=== PATIENT | male | born 1935 | race Caucasian/White ===

== ENCOUNTER 2020-11-11 23:44 | Inpatient (IN) | payer MEDICARE, OTHER ==
--- NOTE | 2020-11-12 00:09 | ED ---
Weakness HPI - General Stated complaint: Weakness Time Seen by Provider: 11/11/20 23:46 Source: patient Limitations: no limitations - History of Present Illness Initial comments: This patient is an 85-year-old man here to be evaluated for weakness. The patient reports that both of his legs were weak and he was not able to walk well. This it come on tonight. On further history reveals that the patient may have taken all of his daily medications tonight, including a number of antihypertensives. It is reported that sometimes when the patient forgets his morning medications, he takes them as well as the night medications. The patient is denying focal weakness. He denies pain, dyspnea, fever or chills. No change in urination or bowel movements. No nausea or vomiting. MD Complaint: generalized weakness Onset/Timin -: hour(s) Location: LLE, RLE Consistency: other (Improving) Improves with: none Worsens with: none Associated Symptoms: denies other symptoms - Related Data Home Medications Medication Instructions Recorded Confirmed Atorvastatin Calcium [Lipitor] 10 mg PO HS 11/12/20 11/12/20 Clopidogrel Bisulfate [Plavix] 75 mg PO DAILY 11/12/20 11/12/20 Losartan/Hydrochlorothiazide 1 tab PO DAILY 11/12/20 11/12/20 [Losartan-Hctz 100-25 mg Tab] amLODIPine [Norvasc] 10 mg PO DAILY 11/12/20 11/12/20 atenoloL [Atenolol] 25 mg PO DAILY 11/12/20 11/12/20 glyBURIDE [Diabeta] 5 mg PO AC-BID 11/12/20 11/12/20 metFORMIN HCL 500 mg PO BID 11/12/20 11/12/20 Allergies Allergy/AdvReac Type Severity Reaction Status Date / Time No Known Allergies Allergy Verified 11/12/20 09:29 Review of Systems ROS Statement: Those systems with pertinent positive or pertinent negative responses have been documented in the HPI. ROS Other: All systems not noted in ROS Statement are negative. Constitutional: Reports: weakness. Denies: fever, chills Eyes: Denies: vision change Respiratory: Denies: cough, dyspnea Cardiovascular: Denies: chest pain, palpitations, edema, syncope Gastrointestinal: Denies: abdominal pain, vomiting, diarrhea, melena, hematochezia Genitourinary: Denies: dysuria Musculoskeletal: Denies: back pain Skin: Denies: rash Neurological: Denies: headache, weakness, numbness General Exam General appearance: alert, in no apparent distress Head exam: Present: atraumatic, normocephalic Eye exam: Present: normal appearance. Absent: scleral icterus, conjunctival injection Neck exam: Present: normal inspection, full ROM. Absent: tenderness Respiratory exam: Present: normal lung sounds bilaterally. Absent: respiratory distress, wheezes, rales, rhonchi, stridor Cardiovascular Exam: Present: regular rate, normal rhythm, normal heart sounds. Absent: systolic murmur, diastolic murmur, rubs, gallop GI/Abdominal exam: Present: soft. Absent: distended, tenderness, guarding, rebound, rigid, mass Extremities exam: Present: normal inspection, normal capillary refill. Absent: pedal edema, calf tenderness Back exam: Present: normal inspection. Absent: CVA tenderness (R), CVA tenderness (L) Neurological exam: Present: alert, CN II-XII intact. Absent: motor sensory deficit Skin exam: Present: warm, dry, intact, normal color. Absent: rash Course Vital Signs 11/11/20 11/12/20 11/12/20 23:50 00:11 02:20 Temperature 99.3 F Pulse Rate 88 65 71 Respiratory 16 22 20 Rate Blood Pressure 138/79 112/80 127/77 O2 Sat by Pulse 95 95 96 Oximetry 11/12/20 04:30 Temperature 98.6 F Pulse Rate 62 Respiratory 18 Rate Blood Pressure 112/71 O2 Sat by Pulse 96 Oximetry EKG Findings - EKG Results: EKG: interpreted by ER[facility] EKG shows: atrial fibrillation (With PVCs. Rate is proximal 73 bpm) - Blocks, [place], Hypertrophy, ST Abn: AV and intraventricular conduction: left bundle branch block (fi xed/intermittent, complete/incomplete) QRS axis and voltage: left axis deviation (-30 to -90) Medical Decision Making - Medical Decision Making Patient is an 85-year-old man presenting with complaint of weakness. On arrival patient's is complaining of generalized weakness. It did appear that this may be due to the atrial fibrillation with rapid ventricular rate. Patient's did arrive and subsequently described some focal symptoms, namely facial droop. Patient however has been outside the window of treatment for ischemic stroke with TPA, being nearly 5 hours symptomatic on arrival in the emergency [facility]. Patient is admitted for further evaluation and treatment including neurology consultation and MRI. - Lab Data Result diagrams: 11/12/20 00:41 11/12/20 00:41 Lab Results 11/12/20 11/12/20 11/12/20 Range/Units 00:41 00:41 00:41 WBC 9.0 (3.8-10.6) k/uL RBC 4.61 (4.30-5.90) m/uL Hgb 14.6 (13.0-17.5) gm/dL Hct 43.1 (39.0-53.0) % MCV 93.5 (80.0-100.0) fL MCH 31.8 (25.0-35.0) pg MCHC 34.0 (31.0-37.0) g/dL RDW 12.6 (11.5-15.5) % Plt Count 238 (150-450) k/uL MPV 7.5 Neutrophils % 74 % Lymphocytes % 14 % Monocytes % 8 % Eosinophils % 2 % Basophils % 1 % Neutrophils # 6.7 (1.3-7.7) k/uL Lymphocytes # 1.2 (1.0-4.8) k/uL Monocytes # 0.7 (0-1.0) k/uL Eosinophils # 0.2 (0-0.7) k/uL Basophils # 0.1 (0-0.2) k/uL PT 10.6 (9.0-12.0) sec INR 1.0 (<1.2) APTT 22.9 (22.0-30.0) sec Sodium (137-145) mmol/L Potassium (3.5-5.1) mmol/L Chloride (98-107) mmol/L Carbon Dioxide (22-30) mmol/L Anion Gap mmol/L BUN (9-20) mg/dL Creatinine (0.66-1.25) mg/dL Est GFR (CKD-EPI)AfAm (>60 ml/min/1.73 sqM) Est GFR (CKD-EPI)NonAf (>60 ml/min/1.73 sqM) Glucose (74-99) mg/dL POC Glucose (mg/dL) (75-99) mg/dL POC Glu [employer] ID Calcium (8.4-10.2) mg/dL Total Bilirubin (0.2-1.3) mg/dL AST (17-59) U/L ALT (4-49) U/L Alkaline Phosphatase (38-126) U/L Troponin I (0.000-0.034) ng/mL Total Protein (6.3-8.2) g/dL Albumin (3.5-5.0) g/dL Triglycerides (0.0-149.0) mg/dL Cholesterol (0-200) mg/dL LDL Cholesterol, Calc (0.0-131.0) mg/dL VLDL Cholesterol, Calc (5.00-40.00) mg/dL HDL Cholesterol (40.0-60.0) mg/dL Cholesterol/HDL Ratio Urine Color Yellow Urine Appearance Clear (Clear) Urine pH 6.0 (5.0-8.0) Ur Specific [place] 1.016 (1.001-1.035) Urine Protein Negative (Negative) Urine Glucose (UA) 3+ H (Negative) Urine Ketones Negative (Negative) Urine Blood Negative (Negative) Urine Nitrite Negative (Negative) Urine Bilirubin Negative (Negative) Urine Urobilinogen <2.0 (<2.0) mg/dL Ur Leukocyte Esterase Negative (Negative) 11/12/20 11/12/20 11/12/20 Range/Units 00:41 00:41 00:41 WBC (3.8-10.6) k/uL RBC (4.30-5.90) m/uL Hgb (13.0-17.5) gm/dL Hct (39.0-53.0) % MCV (80.0-100.0) fL MCH (25.0-35.0) pg MCHC (31.0-37.0) g/dL RDW (11.5-15.5) % Plt Count (150-450) k/uL MPV Neutrophils % % Lymphocytes % % Monocytes % % Eosinophils % % Basophils % % Neutrophils # (1.3-7.7) k/uL Lymphocytes # (1.0-4.8) k/uL Monocytes # (0-1.0) k/uL Eosinophils # (0-0.7) k/uL Basophils # (0-0.2) k/uL PT (9.0-12.0) sec INR (<1.2) APTT (22.0-30.0) sec Sodium 141 (137-145) mmol/L Potassium 4.1 (3.5-5.1) mmol/L Chloride 105 (98-107) mmol/L Carbon Dioxide 26 (22-30) mmol/L Anion Gap 10 mmol/L BUN 27 H (9-20) mg/dL Creatinine 1.00 (0.66-1.25) mg/dL Est GFR (CKD-EPI)AfAm 79 (>60 ml/min/1.73 sqM) Est GFR (CKD-EPI)NonAf 68 (>60 ml/min/1.73 sqM) Glucose 165 H (74-99) mg/dL POC Glucose (mg/dL) (75-99) mg/dL POC Glu [employer] ID Calcium 8.9 (8.4-10.2) mg/dL Total Bilirubin 0.6 (0.2-1.3) mg/dL AST 23 (17-59) U/L ALT 16 (4-49) U/L Alkaline Phosphatase 93 (38-126) U/L Troponin I <0.012 (0.000-0.034) ng/mL Total Protein 6.8 (6.3-8.2) g/dL Albumin 4.2 (3.5-5.0) g/dL Triglycerides 77.0 (0.0-149.0) mg/dL Cholesterol 105 (0-200) mg/dL LDL Cholesterol, Calc 47.6 (0.0-131.0) mg/dL VLDL Cholesterol, Calc 15.40 (5.00-40.00) mg/dL HDL Cholesterol 42.0 (40.0-60.0) mg/dL Cholesterol/HDL Ratio 2.50 Urine Color Urine Appearance (Clear) Urine pH (5.0-8.0) Ur Specific [place] (1.001-1.035) Urine Protein (Negative) Urine Glucose (UA) (Negative) Urine Ketones (Negative) Urine Blood (Negative) Urine Nitrite (Negative) Urine Bilirubin (Negative) Urine Urobilinogen (<2.0) mg/dL Ur Leukocyte Esterase (Negative) 11/12/20 11/12/20 Range/Units 01:05 07:09 WBC (3.8-10.6) k/uL RBC (4.30-5.90) m/uL Hgb (13.0-17.5) gm/dL Hct (39.0-53.0) % MCV (80.0-100.0) fL MCH (25.0-35.0) pg MCHC (31.0-37.0) g/dL RDW (11.5-15.5) % Plt Count (150-450) k/uL MPV Neutrophils % % Lymphocytes % % Monocytes % % Eosinophils % % Basophils % % Neutrophils # (1.3-7.7) k/uL Lymphocytes # (1.0-4.8) k/uL Monocytes # (0-1.0) k/uL Eosinophils # (0-0.7) k/uL Basophils # (0-0.2) k/uL PT (9.0-12.0) sec INR (<1.2) APTT (22.0-30.0) sec Sodium (137-145) mmol/L Potassium (3.5-5.1) mmol/L Chloride (98-107) mmol/L Carbon Dioxide (22-30) mmol/L Anion Gap mmol/L BUN (9-20) mg/dL Creatinine (0.66-1.25) mg/dL Est GFR (CKD-EPI)AfAm (>60 ml/min/1.73 sqM) Est GFR (CKD-EPI)NonAf (>60 ml/min/1.73 sqM) Glucose (74-99) mg/dL POC Glucose (mg/dL) 127 H 103 H (75-99) mg/dL POC Glu [employer] Work[employer] Dionna Villarreal Tiffany Calcium (8.4-10.2) mg/dL Total Bilirubin (0.2-1.3) mg/dL AST (17-59) U/L ALT (4-49) U/L Alkaline Phosphatase (38-126) U/L Troponin I (0.000-0.034) ng/mL Total Protein (6.3-8.2) g/dL Albumin (3.5-5.0) g/dL Triglycerides (0.0-149.0) mg/dL Cholesterol (0-200) mg/dL LDL Cholesterol, Calc (0.0-131.0) mg/dL VLDL Cholesterol, Calc (5.00-40.00) mg/dL HDL Cholesterol (40.0-60.0) mg/dL Cholesterol/HDL Ratio Urine Color Urine Appearance (Clear) Urine pH (5.0-8.0) Ur Specific [place] (1.001-1.035) Urine Protein (Negative) Urine Glucose (UA) (Negative) Urine Ketones (Negative) Urine Blood (Negative) Urine Nitrite (Negative) Urine Bilirubin (Negative) Urine Urobilinogen (<2.0) mg/dL Ur Leukocyte Esterase (Negative) Disposition Clinical Impression: Atrial fibrillation Narrative: Possible ischemic stroke versus TIA Disposition: ADMITTED IP TO THIS HOSP Condition: Serious Is patient prescribed a controlled substance at d/c from ED?: No
--- NOTE | 2020-11-12 00:37 | XR ---
EXAMINATION TYPE: XR chest 2V DATE OF EXAM: 11/12/2020 COMPARISON: NONE HISTORY: Mental status TECHNIQUE: 2 views FINDINGS: There is slight coarsening of interstitial markings. There is no pulmonary consolidation. T here is no heart failure. There is arthritic changes in the shoulder joints. There is no pleural effu radha. IMPRESSION: Mild pulmonary fibrotic changes. No heart failure or pulmonary consolidation.
[2020-11-12 01:03] LABS: Basophils # (A) 0.1 k/uL (0-0.2); Basophils % (A) 1 %; Eosinophils # (A) 0.2 k/uL (0-0.7); Eosinophils % (A) 2 %; HCT 43.1 % (39.0-53.0); HGB 14.6 gm/dL (13.0-17.5); Lymphocytes # (A) 1.2 k/uL (1.0-4.8); Lymphocytes % (A) 14 %; MCH 31.8 pg (25.0-35.0); MCV 93.5 fL (80.0-100.0); Mean Platelet Volume 7.5; Monocytes # (A) 0.7 k/uL (0-1.0); Monocytes % (A) 8 %; Neutrophils # (A) 6.7 k/uL (1.3-7.7); Neutrophils % (A) 74 %; Platelet Count 238 k/uL (150-450); RBC 4.61 m/uL (4.30-5.90); RDW 12.6 % (11.5-15.5)
[2020-11-12 01:07] LABS: Glucose,Whole Blood 127 mg/dL (75-99)
[2020-11-12 01:08] LABS: Partial Thromboplastin Time 22.9 sec (22.0-30.0); Prothrombin Time 10.6 sec (9.0-12.0)
[2020-11-12 01:22] LABS: Albumin 4.2 g/dL (3.5-5.0); Calcium 8.9 mg/dL (8.4-10.2); Potassium 4.1 mmol/L (3.5-5.1); Total Bilirubin 0.6 mg/dL (0.2-1.3); Total Protein 6.8 g/dL (6.3-8.2)
[2020-11-12 02:20] LABS: Appearance,Urine Clear (Clear); Bilirubin,Urine Negative (Negative); Blood,Urine Negative (Negative); Color,Urine Yellow; Glucose,Urine (UA) 3+ (Negative); Ketones,Urine Negative (Negative); Leukocyte Esterase,Urine Negative (Negative); Nitrite,Urine Negative (Negative); Protein,Urine Negative (Negative); Specific Gravity,Urine 1.016 (1.001-1.035); Urobilinogen,Urine <2.0 mg/dL (<2.0)
[2020-11-12] MEDS ORDERED: NALOXONE 0.4 MG/ML 1 ML VIAL IV PRN (04:03)
[2020-11-12] MEDS: SODIUM CHLORIDE 0.9% 1,000 ML IV SCH ×2 (04:53→18:39)
--- NOTE | 2020-11-12 05:14 | CT ---
EXAMINATION TYPE: CT brain wo con DATE OF EXAM: 11/12/2020 COMPARISON: None HISTORY: AMS. No prior on PACS CT DLP: 1247.7 mGycm Automated exposure control for dose reduction was used. There is cerebral cortical atrophy. There is no mass effect nor midline shift. There is no sign of in tracranial hemorrhage. There is 3 cm area of hypodensity left posterior temporal lobe consistent with an old infarct. There is hypodensity in the periventricular white matter. The calvarium is intact. S kull base is intact. 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 Cerebral atrophy. Chronic small vessel ischemia. No acute i ntracranial abnormality.
[2020-11-12 07:12] LABS: Glucose,Whole Blood 103 mg/dL (75-99)
[2020-11-12 11:40] LABS: Glucose,Whole Blood 128 mg/dL (75-99)
[2020-11-12] MEDS: INSULIN ASPART (NovoLOG) 100 UNIT/ML VIAL SQ SCH ×3 (11:47→20:32)
--- NOTE | 2020-11-12 11:48 | P.CNNES ---
History of Present Illness Consult date: 11/12/20 Requesting physician: Adonay Hess Reason for Consult: Altered mental status History of Present Illness: Patient is a 85-year-old male came to the hospital yesterday at 11:44 PM by ambulance for weakness. Patient states that he was watching TV at 7 pm and suddenly became dizzy and was slurring his words. The dizziness lasted for 5 minutes. He was noticing difficulty getting up, and could not walk. EMS was called and by the time EMS arrived, he was able to speak. He was still weak, but patient declined to come to the hospital, and EMS personnel left. Subsequ ently he noticed that he was still not able to get up, therefore was concerned if he was having a stroke. Family called the EMS again at 10:51 PM therefore came to the ER. Patient still complains of weakness all over. He states he has history of 5 strokes in the past. He states that his left arm is always weaker in the right for the last 1 year. He denies any numbness tingling or focal weakness. Patient states that usually he does not use any cane or walker. He is very careful for walking. Per EMS flow sheet, patient was brought for possible overdose on his medications. Patient had experienced dizziness and weakness earlier in the evening and refused to be treated and transported by EMS at that time. Later on in the evening the patient realized he did not take his morning medications and decided to double the dose on his medications to make up for missing the morning doses and per his family was acting altered. When EMS arrived, patient was sitting in his couch appearing in no distress. He was alert and oriented 4, GCS of 15 and was interacting appropriately with other first responders. Patient was negative for any deficits on [place] stroke scale. Patient initially declined to go to the hospital but patient's reinforced and he agreed to come to the hospital. Patient's vitals at the scene was 147/83 pulse rate 82, respiration 18 and blood sugar 262. Patient's vitals on arrival blood pressure 138/79, pulse rate 88, temperature 99.3. CT head showed old left posterior temporal lobe infarct. Cerebral atrophy. Chronic small vessel ischemia. Chest x-ray showed mild pulmonary fibrotic changes. No heart failure or pulmonary consolidation. Patient's home medications include glyburide 5 mg twice a day, amlodipine, losartan/HCTZ, atenolol, Plavix 75 mg, Lipitor 10 mg, metformin 500 mg twice a day. Patient has history of hypertension, diabetes. He smoked half pack per day for 30 years, quit 40 years ago. Patient states he has 6 strokes 5 years ago. Patient had undergone skin cancer surgery involving the vertex of the head. About a month ago he underwent "burning" of the lesion. The cancer came back therefore he underwent surgical removal of the lesion last Monday 3 days ago. Review of Systems As above in detail. Denies any neck or back pain. Patient has arthritis. Denies any chest pain, abdominal pain, nausea vomiting diarrhea. He has soiled his underwear with urine. He has some gait problem. Denies anxiety depression. Patient has hearing difficulty. No sore throat, dysphagia. Past Medical History Past Medical History: Diabetes Mellitus, Hyperlipidemia, Hypertension Additional Past Medical History / Comment(s): Stroke History of Any Multi-Drug Resistant Organisms: None Reported Additional Past Surgical History / Comment(s): knee surgery, eye surgery Past Psychological History: No Psychological Hx Reported Smoking Status: Former smoker Past Alcohol Use History: Occasional Past Drug Use History: None Reported Medications and Allergies Home Medications Medication Instructions Recorded Confirmed Type Atorvastatin Calcium [Lipitor] 10 mg PO HS 11/12/20 11/12/20 History Clopidogrel Bisulfate [Plavix] 75 mg PO DAILY 11/12/20 11/12/20 History Losartan/Hydrochlorothiazide 1 tab PO DAILY 11/12/20 11/12/20 History [Losartan-Hctz 100-25 mg Tab] amLODIPine [Norvasc] 10 mg PO DAILY 11/12/20 11/12/20 History atenoloL [Atenolol] 25 mg PO DAILY 11/12/20 11/12/20 History glyBURIDE [Diabeta] 5 mg PO AC-BID 11/12/20 11/12/20 History metFORMIN HCL 500 mg PO BID 11/12/20 11/12/20 History Allergies Allergy/AdvReac Type Severity Reaction Status Date / Time No Known Allergies Allergy Verified 11/12/20 09:29 Physical Examination - Vital Signs Vital Signs: Vital Signs Temp Pulse Pulse Resp BP BP Pulse Ox 11/12/20 07:52 98.2 F 79 16 97/66 96 11/12/20 07:00 98.2 F 79 16 97/66 96 11/12/20 05:44 98.1 F 76 20 140/79 98 11/12/20 04:30 98.6 F 62 18 112/71 96 11/12/20 02:20 71 20 127/77 96 11/12/20 00:11 65 22 112/80 95 11/11/20 23:50 99.3 F 88 16 138/79 95 Intake and Output 11/11/20 11/12/20 11/12/20 22:59 06:59 14:59 Other: # Voids 0 Weight 81.647 kg Patient is an elderly male, in no acute distress. Patient is alert awake oriented to time place and person. He knows it is October 2020 and that he is in [facility]. Speech is mildly dysarthric and language functions are normal. No aphasia. Attention, concentration and fund of knowledge is adequate. On cranial examination, right pupil is tear shaped (surgical) and NR, left pupil is round and reacting to light, visual church reveal left homonymous hemianopia, extraocular muscles are intact with no nystagmus. Face has mild left facial asymmetry, central type, tongue protrudes to the midline. Palatal elevation and sensation normal, hearing is moderately decreased and shoulder shrug normal, facial sensation normal. On muscle strength testing, there is significant left pronator drift and the s trength is normal in arms and legs distally and proximally except left deltoid which is 3-4 (per patient is chronic). Deep tendon reflexes are symmetric, 1+ and plantars are upgoing bilaterally. Sensory to touch is equal with no neglect. Cerebellar function showed moderate ataxia for [id number] testing on the left side. Tone and bulk of muscles normal. Patient had difficulty sitting up from the bed. He tends to lean and fall to the left side with posture imbalance. Did not have him walk. On general examination, there is no carotid bruit or murmur, S1-S2 audible. Abdomen is soft nontender. Chest is clear. Peripheral pulses are present. No edema. Results - Laboratory Findings CBC and BMP: 11/12/20 00:41 11/12/20 00:41 Abnormal Lab Findings: Abnormal Labs 11/12/20 11/12/20 11/12/20 00:41 00:41 01:05 BUN 27 H Glucose 165 H POC Glucose (mg/dL) 127 H Urine Glucose (UA) 3+ H 11/12/20 07:09 BUN Glucose POC Glucose (mg/dL) 103 H Urine Glucose (UA) Assessment and Plan Assessment: * Probable acute stroke manifesting with mild left hemiparesis, left homonymous hemianopia. Patient not a candidate for TPA, as he came outside the window for TPA (>4.5 hours). NIH stroke scale is 7. * Diabetes * Hypertension * Hyperlipidemia * X tobacco use * History of multiple strokes in the past Plan: * MRI of the brain, evaluate for acute stroke * Carotid Doppler, rule out stenosis * 2-D echo * Fasting lipid panel, hemoglobin A1c * B12, folate, MMA, TSH * Continue Plavix, statins. * Telemetry monitoring. Transfer to [facility]. * Further management based upon above test results. * Discussed with primary physician. Addendum 6:00 PM: Patient's telemetry monitoring showing atrial fibrillation. EKG also confirmed atrial fibrillation. MRI of the brain confirmed acute inferior right occipital lobe infarct with extension into the right thalamus. Chronic appearing periventricular white matter ischemic change. 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 Patient's and son arrived. Spoke to them in detail. Informed about the results of MRI. As patient has moderate size ischemic stroke, therefore high risk of hemorrhagic conversion with anticoagulation at this time. I discussed with patient's and son in detail about risk and benefits. Family agreed to hold off on anticoagulation for 5 days. I would suggest repeating computed tomography scan of the head on Monday morning. In the computed tomography scan shows no hemorrhagic conversion, would recommend starting anticoagulants from 11/16/2020. Continue Plavix, continue Lovenox for DVT prophylaxis. Discussed with primary physician, agree with the management. Time with Patient: Greater than 30
[2020-11-12] MEDS: ENOXAPARIN 40 MG/0.4 ML SYRINGE SQ SCH (11:54)
[2020-11-12] MEDS: metFORMIN 500 MG TAB PO SCH ×2 (11:54→20:31)
[2020-11-12] MEDS: CLOPIDOGREL 75 MG TAB PO SCH (11:54)
[2020-11-12] MEDS: glipiZIDE 10 MG TAB PO SCH ×2 (11:54→20:31)
[2020-11-12] MEDS: atenoloL 25 MG TAB PO SCH (11:54)
[2020-11-12] MEDS: amLODIPine 10 MG TAB PO SCH (11:54)
[2020-11-12] MEDS: LOSARTAN-HCTZ 50-12.5 MG 1 EACH TAB PO SCH (12:50)
--- NOTE | 2020-11-12 16:40 | MR ---
EXAMINATION TYPE: MR brain wo con DATE OF EXAM: 11/12/2020 COMPARISON: CT brain 11/12/2020 HISTORY: CVA CONTRAST: Performed utilizing 0 mL intravenous Gadavist gadolinium contrast. TECHNIQUE: Multiplanar, multiecho imaging on a 3.0 Sandrita magnet is performed through the brain. Stud y is performed within 24 hours of arrival to the hospital. The craniovertebral junction is normal. The pituitary is normal. Diffusion-weighted imaging is performed. There is hyperintensity within the inferior right occipital lobe with extension into the right thalamus compatible with acute infarct. There is an old infarct within the left watershed region. Periventricular white matter hyperintensity is present, likely on the basis of chronic white matter ischemic changes. Ventricles and sulci are prominent for the patient age. IMPRESSIONS: 1. Acute inferior right occipital lobe infarct with extension into the right thalamus. 2. Chronic appearing periventricular white matter ischemic changes. 3. Old left watershed infarct
[2020-11-12 17:04] LABS: Glucose,Whole Blood 151 mg/dL (75-99)
--- NOTE | 2020-11-12 17:15 | P.HPIM ---
History of Present Illness H&P Date: 11/12/20 Chief Complaint: Dizziness, slurred speech History of presenting complaint: This is a pleasant 85-year-old patient of Dr. David Mcnally. Chronic stable medical conditions include diabetes, hyperlipidemia, hypertension with a possible prior stroke. Patient is not the best of historians. Yesterday evening around 7:30 PM he was watching television when patient suddenly noticed that he became dizzy and also his speech became slurred. He's had previous strokes. His left arm is weaker from before. Patient's finding it a bit difficult to walk. Patient also missed his morning medications. But he is done so before. Patient is not short of days and he knew change in vision. He has trouble from his right eye because of cataract. He denies any trouble in swallowing. No headache. Review of systems: GEN.: Tired EYES: Decreased vision in the right eye HEENT: None NECK: None RESPIRATORY: None CARDIOVASCULAR: None GASTROINTESTINAL: None GENITOURINARY: None MUSCULOSKELETAL: Joint pains LYMPHATICS: None HEMATOLOGICAL: None PSYCHIATRY: A bit forgetful NEUROLOGICAL: As above Past medical history to include: Diabetes, hypertension, hyperlipidemia, stroke Social history: Retired. . Did smoke in the past. Alcohol occasionally Physical examination: VITAL SIGNS: 99.3, 88, 16, 138/79, 95% room air upon presentation GENERAL: BMI 25.1, laying in bed, awake, tired. EYES: Pupils equal. Conjunctiva normal. HEENT: External appearance of nose and ears normal, oral cavity grossly normal. NECK: JVD not raised; masses not palpable. HEART: First and second heart sounds are normal; no edema. LUNGS: Respiratory rate normal; decreased breath sound. ABDOMEN: Soft, nontender, liver spleen not palpable, no masses palpable. PSYCH: Patient bit slow to answer questions but able to do so.l. NEUROLOGICAL: [Speech is a bit slow. Slight facial asymmetry Power in the left arm 4/5. 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 Gait imbalance Reflexes mainly symmetrical sensation grossly preserved LYMPHATICS: No lymph nodes palpable in the axilla and neck INVESTIGATIONS, reviewed in the clinical context: WBC 9 hemoglobin 14.6 platelets 238 potassium 4.1 BUN 27 creatinine 1 Troponin I less than 0.012 UA: Glucose 3+ EKG tracing personally reviewed by me-atrial fibrillation with a rate of 73. 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 Cerebral atrophy. Chest x-ray film personally reviewed by me-borderline cardiomegaly. Course interstitial markings Assessment and plan: -This is a patient presented with sudden dizziness, difficulty walking, and weakness of the left arm which may be chronic. Unclear if patient has any visu al field defects at this point. Acute stroke. Neuro checks. Consult neurology. MRI of the brain. Plavix. Add aspirin. Lipitor. Carotid Doppler. 2-D echocardiogram. 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 Consult PTOT -Essential hypertension Continue with amlodipine, Tenormin, Hyzaar -Hyperlipidemia Increase Lipitor to 40 mg daily at bedtime -Diabetes mellitus type 2, on oral hypoglycemic Resume glyburide. For Accu-Cheks. Patient be moved to the telemetry floor. Discussed with neurology. Home medications resumed. Follow Accu-Cheks. Fall precautions. Consultation to PTOT and speech therapy. 2-D echo, carotid Doppler pending. MRI of the brain pending. Given the complexity and severity of patient's condition expect the patient to be in the hospital at least for 2 overnights Past Medical History Past Medical History: Diabetes Mellitus, Hyperlipidemia, Hypertension Additional Past Medical History / Comment(s): Stroke History of Any Multi-Drug Resistant Organisms: None Reported Additional Past Surgical History / Comment(s): knee surgery, eye surgery Past Psychological History: No Psychological Hx Reported Smoking Status: Former smoker Past Alcohol Use History: Occasional Past Drug Use History: None Reported Medications and Allergies Home Medications Medication Instructions Recorded Confirmed Type Atorvastatin Calcium [Lipitor] 10 mg PO HS 11/12/20 11/12/20 History Clopidogrel Bisulfate [Plavix] 75 mg PO DAILY 11/12/20 11/12/20 History Losartan/Hydrochlorothiazide 1 tab PO DAILY 11/12/20 11/12/20 History [Losartan-Hctz 100-25 mg Tab] amLODIPine [Norvasc] 10 mg PO DAILY 11/12/20 11/12/20 History atenoloL [Atenolol] 25 mg PO DAILY 11/12/20 11/12/20 History glyBURIDE [Diabeta] 5 mg PO AC-BID 11/12/20 11/12/20 History metFORMIN HCL 500 mg PO BID 11/12/20 11/12/20 History Allergies Allergy/AdvReac Type Severity Reaction Status Date / Time No Known Allergies Allergy Verified 11/12/20 09:29 Physical Exam Vitals: Vital Signs Temp Pulse Pulse Resp BP BP Pulse Ox 11/12/20 07:52 98.2 F 79 16 97/66 96 11/12/20 07:00 98.2 F 79 16 97/66 96 11/12/20 05:44 98.1 F 76 20 140/79 98 11/12/20 04:30 98.6 F 62 18 112/71 96 11/12/20 02:20 71 20 127/77 96 11/12/20 00:11 65 22 112/80 95 11/11/20 23:50 99.3 F 88 16 138/79 95 Intake and Output 11/11/20 11/12/20 11/12/20 22:59 06:59 14:59 Other: # Voids 0 Weight 81.647 kg Results CBC & Chem 7: 11/12/20 00:41 11/12/20 00:41 Labs: Abnormal Lab Results - Last 24 Hours (Table) 11/12/20 11/12/20 11/12/20 Range/Units 00:41 00:41 01:05 BUN 27 H (9-20) mg/dL Glucose 165 H (74-99) mg/dL POC Glucose (mg/dL) 127 H (75-99) mg/dL Urine Glucose (UA) 3+ H (Negative) 11/12/20 Range/Units 07:09 BUN (9-20) mg/dL Glucose (74-99) mg/dL POC Glucose (mg/dL) 103 H (75-99) mg/dL Urine Glucose (UA) (Negative) Thrombosis Risk Factor Assmnt - Choose All That Apply Other Risk Factors: Yes Each Risk Factor Represents 3 Points: Age 75 years or older Thrombosis Risk Factor Assessment Total Risk Factor Score: 3 Thrombosis Risk Factor Assessment Level: Moderate Risk
[2020-11-12] MEDS: ASPIRIN 81 MG PO SCH (18:32)
[2020-11-12 19:13] LABS: Hemoglobin A1C 6.2 % (4.0-6.0)
--- NOTE | 2020-11-12 19:35 | ECHOF ---
Referral Reason:CVA MEASUREMENTS -------- HEIGHT: 182.9 cm WEIGHT: 81.6 kg BP: IVSd: 1.3 cm (0.6 - 1.1) LVIDd: 3.4 cm (3.9 - 5.3) LVPWd: 1.3 cm (0.6 - 1.1) EDV(Teich): 46 ml IVSs: 1.6 cm LVIDs: 2.8 cm LVPWs: 1.4 cm %IVS Thck: 25 % ESV(Teich): 29 ml EF(Teich): 38 % %FS: 18 % SV(Teich): 17 ml RVIDd: 3.9 cm (< 3.3) LALs A4C: 5.9 cm LAAs A4C: 23.8 cm LAESV A-L A4C: 82 ml LAESV MOD A4C: 77 ml LALs A2C: 6.2 cm LAAs A2C: 24.3 cm LAESV A-L A2C: 81 ml LAESV MOD A2C: 76 ml LAESV(A-L): 84 ml LAESV Index (A-L): 41.22 ml/m Ao Diam: 2.8 cm (2.0 - 3.7) LA Diam: 5.2 cm (2.7 - 3.8) AV Cusp: 1.9 cm (1.5 - 2.6) MV E Blaise: 1.08 m/s MV DecT: 313 ms MV Dec Mccormick: 3.4 m/s MV A Blaise: 0.33 m/s MV E/A Ratio: 3.24 MV PHT: 91 ms TR Vmax: 2.66 m/s TR maxP.21 mmHg RAP: 5.00 mmHg RVSP: 33.21 mmHg FINDINGS -------- Undetermined rhythm. This was a technically good study. The left ventricular size is normal. There is mild concentric left ventricular hypertrophy. Overa ll left ventricular systolic function is low-normal with, an EF between 50 - 55 %. The right ventricle is normal in size. LA is severely dilated >40 ml/m2 The right atrial size is normal. There is mild aortic valve sclerosis. There is no evidence of aortic regurgitation. Mild mitral annular calcification present. Htpt-vz-dichxrps mitral regurgitation is present. Mild tricuspid regurgitation present. Right ventricular systolic pressure is normal at < 35 mmHg. There is no pulmonic regurgitation present. There is no pericardial effusion. CONCLUSIONS -------- 1. The left ventricular size is normal. 2. There is mild concentric left ventricular hypertrophy. 3. Overall left ventricular systolic function is low-normal with, an EF between 50 - 55 %. 4. The right ventricle is normal in size. 5. LA is severely dilated >40 ml/m2 6. The right atrial size is normal. 7. There is mild aortic valve sclerosis. 8. Mild mitral annular calcification present. 9. Gtbo-it-wpqtdtff mitral regurgitation is present. 10. Mild tricuspid regurgitation present. 11. There is no pericardial effusion. BOTTOMING MACHINE OPERATOR: Caitlin Arechiga RDCS
[2020-11-12 20:08] LABS: Glucose,Whole Blood 164 mg/dL (75-99)
[2020-11-12] MEDS: ATORVASTATIN 40 MG TAB PO SCH (20:31)
[2020-11-12] MEDS ORDERED: ATORVASTATIN 10 MG TAB PO SCH (21:00)
--- NOTE | 2020-11-13 00:14 | US ---
EXAMINATION TYPE: US carotid duplex BILAT DATE OF EXAM: 11/12/2020 COMPARISON: MR, CT CLINICAL HISTORY: CVA. CVA per order. EXAM MEASUREMENTS: RIGHT: Peak Systolic Velocity (PSV) cm/sec ----- Right CCA: 65.5 ----- Right ICA: 82.0 ----- Right ECA: 97.5 ICA/CCA ratio: 1.3 RIGHT: End Diastole cm/sec ----- Right CCA: 16.0 ----- Right ICA: 23.7 ----- Right ECA: 12.0 LEFT: Peak Systolic Velocity (PSV) cm/sec ----- Left CCA: 85.0 ----- Left ICA: 91.4 ----- Left ECA: 74.4 ICA/CCA ratio: 1.1 LEFT: End Diastole cm/sec ----- Left CCA: 17.1 ----- Left ICA: 13.9 ----- Left ECA: 7.2 VERTEBRALS (direction of flow): Right Vertebral: Unable to visualize by ultrasound. Left Vertebral: Antegrade Rhythm: Arrhythmia Intimal thickening seen bilaterally. Plaque seen within bilateral carotid bifurcations. No elevated v elocities at this time. IMPRESSION: There is antegrade flow in the left vertebral artery and no flow identified in the right vertebral ar shanon. The images and measurements suggest close to 50% stenosis in both internal carotid arteries. Criteria for Assigning % of Stenosis / Diameter reduction (Estimation based on the indirect measurements of the internal carotid artery velocities (ICA PSV). 1. Normal (no stenosis)=ICA PSV < 125 cm/s: ratio < 2.0: ICA EDV<40 cm/s. 2. Less than 50% stenosis=ICA PSV < 125 cm/s: ratio < 2.0: ICA EDV<40 cm/s. 3. 50 to 69% stenosis=ICA PSV of 125 to 230 cm/s: ration 2.0 ? 4.0: ICA EDV 40-100 cm/s. 4. Greater than 70% stenosis to near occlusion= ICA PSV > 230 cm/s: ratio > 4.0: ICA EDV > 100 cm/s. 5. Near occlusion= ICA PSV velocities may be low or undetectable: variable ratio and ICA EDV. 6. Total occlusion=unable to detect flow.
[2020-11-13 04:31] LABS: Folate, Serum >24.0 ng/mL
[2020-11-13 06:11] LABS: Glucose,Whole Blood 68 mg/dL (75-99)
[2020-11-13 06:24] LABS: Glucose,Whole Blood 64 mg/dL (75-99)
[2020-11-13] MEDS: glipiZIDE 10 MG TAB PO SCH ×2 (06:31→21:23)
[2020-11-13] MEDS: metFORMIN 500 MG TAB PO SCH ×2 (06:31→21:23)
[2020-11-13] MEDS: INSULIN ASPART (NovoLOG) 100 UNIT/ML VIAL SQ SCH ×4 (06:31→21:24)
[2020-11-13 06:42] LABS: Glucose,Whole Blood 88 mg/dL (75-99)
[2020-11-13 09:35] LABS: Chol/HDL Ratio 2.5; LDL Cholesterol,Calculated 47.6 mg/dL (0.0-131.0); VLDL Calculation 15.4 mg/dL (5.00-40.00)
[2020-11-13] MEDS: ENOXAPARIN 40 MG/0.4 ML SYRINGE SQ SCH (12:06)
[2020-11-13] MEDS: ASPIRIN 81 MG PO SCH (12:06)
[2020-11-13] MEDS: CLOPIDOGREL 75 MG TAB PO SCH (12:07)
[2020-11-13] MEDS: atenoloL 25 MG TAB PO SCH (12:07)
[2020-11-13] MEDS: amLODIPine 10 MG TAB PO SCH (12:07)
[2020-11-13] MEDS: SODIUM CHLORIDE 0.9% 1,000 ML IV SCH ×2 (12:10→21:24)
[2020-11-13 15:45] LABS: Glucose,Whole Blood 130 mg/dL (75-99)
[2020-11-13 16:43] LABS: Glucose,Whole Blood 123 mg/dL (75-99)
[2020-11-13 19:59] LABS: Glucose,Whole Blood 179 mg/dL (75-99)
[2020-11-13] MEDS: LOSARTAN-HCTZ 50-12.5 MG 1 EACH TAB PO SCH (20:56)
[2020-11-13] MEDS: ATORVASTATIN 40 MG TAB PO SCH (21:23)
--- NOTE | 2020-11-13 22:15 | P.PN ---
Progress Note - Text Progress Note Date: 11/13/20 Chief Complaint: Dizziness, slurred speech History of presenting complaint: This is a pleasant 85-year-old patient of Dr. David Mcnally. Chronic stable medical conditions include diabetes, hyperlipidemia, hypertension with a possible prior stroke. Patient is not the best of historians. Yesterday evening around 7:30 PM he was watching television when patient suddenly noticed that he became dizzy and also his speech became slurred. He's had previous strokes. His left arm is weaker from before. Patient's finding it a bit difficult to walk. Patient also missed his morning medications. But he is done so before. Patient is not short of days and he knew change in vision. He has trouble from his right eye because of cataract. He denies any trouble in swallowing. No headache. MRI showed: Acute inferior right occipital lobe infarct extension into the right thalamus. 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 Placed on aspirin, Lipitor, Plavix Today: In a recliner. A bit tired. Speech is a bit slow. Review of systems: Was done for constitutional, cardiovascular, GI, pulmonary. relevant finding as above Active Medications Amlodipine Besylate (Amlodipine 10 Mg Tab) 10 mg PO DAILY [facility] Last Admin: 11/13/20 12:07 Dose: 10 mg Documented by: Aspirin (Aspirin 81 Mg) 81 mg PO DAILY [facility] Last Admin: 11/13/20 12:06 Dose: 81 mg Documented by: Atenolol (Atenolol 25 Mg Tab) 25 mg PO DAILY [facility] Last Admin: 11/13/20 12:07 Dose: 25 mg Documented by: Atorvastatin Calcium (Atorvastatin 40 Mg Tab) 40 mg PO HS [facility] Last Admin: 11/13/20 21:23 Dose: 40 mg Documented by: Clopidogrel Bisulfate (Clopidogrel 75 Mg Tab) 75 mg PO DAILY [facility] Last Admin: 11/13/20 12:07 Dose: 75 mg Documented by: Enoxaparin Sodium (Enoxaparin 40 Mg/0.4 Ml Syringe) 40 mg SQ DAILY [facility] Last Admin: 11/13/20 12:06 Dose: 40 mg Documented by: Glipizide (Glipizide 10 Mg Tab) 10 mg PO AC-BID [facility] Last Admin: 11/13/20 21:23 Dose: 10 mg Documented by: HCTZ/Losartan Potassium (Losartan-Hctz 50-12.5 Mg 1 Each Tab) 2 each PO DAILY [facility] Last Admin: 11/13/20 20:56 Dose: Not Given Documented by: Sodium Chloride (Saline 0.9%) 1,000 mls @ 75 mls/hr IV .[id number] [facility] Last Admin: 11/13/20 21:24 Dose: 75 mls/hr Documented by: Insulin Aspart (Insulin Aspart (Novolog) 100 Unit/Ml Vial) 0 unit SQ ACHS [facility]; Protocol Last Admin: 11/13/20 21:24 Dose: 2 unit Documented by: Metformin HCl (Metformin 500 Mg Tab) 500 mg PO BID-W/MEALS [facility] Last Admin: 11/13/20 21:23 Dose: 500 mg Documented by: Naloxone HCl (Naloxone 0.4 Mg/Ml 1 Ml Vial) 0.2 mg IV Q2M PRN PRN Reason: Opioid Reversal Past medical history to include: Diabetes, hypertension, hyperlipidemia, stroke Social history: Retired. . Did smoke in the past. Alcohol occasionally Physical examination: VITAL SIGNS: 98, 65, 16, 97 x 55, 93% room air GENERAL: BMI 25.1, declining in a chair, comfortable EYES: Pupils equal. Conjunctiva normal. HEENT: External appearance of nose and ears normal, oral cavity grossly normal. NECK: JVD not raised; masses not palpable. HEART: First and second heart sounds are normal; no edema. LUNGS: Respiratory rate normal; decreased breath sound. ABDOMEN: Soft, nontender, liver spleen not palpable, no masses palpable. PSYCH: Patient bit slow to answer questions but able to do so.l. NEUROLOGICAL: [Speech is a bit slow. Slight facial asymmetry Power in the left arm 4/5. 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 Gait imbalance INVESTIGATIONS, reviewed in the clinical context: MRI: Acute inferior right occipital lobe infarct with extension into the right thalamus. Or left watershed infarct. Carotid Doppler. No flow identified in the right vertebral artery. 2-D echocardiogram: EF 50-55%. WBC 9 hemoglobin 14.6 platelets 238 potassium 4.1 BUN 27 creatinine 1 Troponin I less than 0.012 UA: Glucose 3+ EKG tracing personally reviewed by me-atrial fibrillation with a rate of 73. 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 Cerebral atrophy. Chest x-ray film personally reviewed by me-borderline cardiomegaly. Course interstitial markings Assessment and plan: - Acute stroke: Right occipital lobe infarct extension into the right thalamus..: Possibly embolic Plavix. aspirin. Lipitor. Discussed with Dr. Oliveira from neurology. He had discussed with the . Eliquis to be started after 72 hours. 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 Walker -Essential hypertension Continue with amlodipine, Tenormin, Hyzaar -Hyperlipidemia Increase Lipitor to 40 mg daily at bedtime -Diabetes mellitus type 2, on oral hypoglycemic Resume glyburide. For Accu-Cheks. A current medication treatment plan. We will await for 72 hours before starting eliquis.
[2020-11-14 02:16] LABS: Glucose,Whole Blood 81 mg/dL (75-99)
[2020-11-14 06:11] LABS: Glucose,Whole Blood 105 mg/dL (75-99)
[2020-11-14] MEDS: INSULIN ASPART (NovoLOG) 100 UNIT/ML VIAL SQ SCH ×4 (06:38→20:24)
[2020-11-14] MEDS: metFORMIN 500 MG TAB PO SCH ×2 (06:59→17:15)
[2020-11-14] MEDS: glipiZIDE 10 MG TAB PO SCH ×2 (06:59→17:15)
[2020-11-14] MEDS: LOSARTAN-HCTZ 50-12.5 MG 1 EACH TAB PO SCH (08:12)
[2020-11-14] MEDS: CLOPIDOGREL 75 MG TAB PO SCH (08:13)
[2020-11-14] MEDS: atenoloL 25 MG TAB PO SCH (08:13)
[2020-11-14] MEDS: ASPIRIN 81 MG PO SCH (08:13)
[2020-11-14] MEDS: amLODIPine 10 MG TAB PO SCH (08:13)
[2020-11-14] MEDS: ENOXAPARIN 40 MG/0.4 ML SYRINGE SQ SCH (08:13)
[2020-11-14] MEDS: SODIUM CHLORIDE 0.9% 1,000 ML IV SCH ×2 (08:16→23:05)
[2020-11-14 11:58] LABS: Glucose,Whole Blood 169 mg/dL (75-99)
--- NOTE | 2020-11-14 14:52 | P.PN ---
Progress Note - Text Progress Note Date: 11/14/20 Chief Complaint: Dizziness, slurred speech History of presenting complaint: This is a pleasant 85-year-old patient of Dr. David Mcnally. Chronic stable medical conditions include diabetes, hyperlipidemia, hypertension with a possible prior stroke. Patient is not the best of historians. Yesterday evening around 7:30 PM he was watching television when patient suddenly noticed that he became dizzy and also his speech became slurred. He's had previous strokes. His left arm is weaker from before. Patient's finding it a bit difficult to walk. Patient also missed his morning medications. But he is done so before. Patient is not short of days and he knew change in vision. He has trouble from his right eye because of cataract. He denies any trouble in swallowing. No headache. [Just recently had a skin cancer removed from the scalp, applying Vaseline dressings, by Dr. alvarado} MRI showed: Acute inferior right occipital lobe infarct extension into the right thalamus. 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 Placed on aspirin, Lipitor, Plavix November 13: In a recliner. A bit tired. Speech is a bit slow. November 14: Resting in a chair. Oral intake fair. No new symptoms. Review of systems: Was done for constitutional, cardiovascular, GI, pulmonary. relevant finding as above Active Medications Amlodipine Besylate (Amlodipine 10 Mg Tab) 10 mg PO DAILY [facility] Last Admin: 11/14/20 08:13 Dose: 10 mg Documented by: Aspirin (Aspirin 81 Mg) 81 mg PO DAILY [facility] Last Admin: 11/14/20 08:13 Dose: 81 mg Documented by: Atenolol (Atenolol 25 Mg Tab) 25 mg PO DAILY [facility] Last Admin: 11/14/20 08:13 Dose: 25 mg Documented by: Atorvastatin Calcium (Atorvastatin 40 Mg Tab) 40 mg PO HS [facility] Last Admin: 11/13/20 21:23 Dose: 40 mg Documented by: Clopidogrel Bisulfate (Clopidogrel 75 Mg Tab) 75 mg PO DAILY [facility] Last Admin: 11/14/20 08:13 Dose: 75 mg Documented by: Enoxaparin Sodium (Enoxaparin 40 Mg/0.4 Ml Syringe) 40 mg SQ DAILY [facility] Last Admin: 11/14/20 08:13 Dose: 40 mg Documented by: Glipizide (Glipizide 10 Mg Tab) 10 mg PO -BID [facility] Last Admin: 11/14/20 06:59 Dose: 10 mg Documented by: HCTZ/Losartan Potassium (Losartan-Hctz 50-12.5 Mg 1 Each Tab) 2 each PO DAILY [facility] Last Admin: 11/14/20 08:12 Dose: 2 each Documented by: Sodium Chloride (Saline 0.9%) 1,000 mls @ 75 mls/hr IV .[id number] [facility] Last Admin: 11/14/20 08:16 Dose: 75 mls/hr Documented by: Insulin Aspart (Insulin Aspart (Novolog) 100 Unit/Ml Vial) 0 unit SQ ACHS [facility]; Protocol Last Admin: 11/14/20 12:39 Dose: 2 unit Documented by: Metformin HCl (Metformin 500 Mg Tab) 500 mg PO BID-W/MEALS [facility] Last Admin: 11/14/20 06:59 Dose: 500 mg Documented by: Naloxone HCl (Naloxone 0.4 Mg/Ml 1 Ml Vial) 0.2 mg IV Q2M PRN PRN Reason: Opioid Reversal Past medical history to include: Diabetes, hypertension, hyperlipidemia, stroke Social history: Retired. . Did smoke in the past. Alcohol occasionally Physical examination: VITAL SIGNS: 98, 68, 16, 1 38 x 70, 94% room air GENERAL: Reclining in a chair, comfortable EYES: Pupils equal. Conjunctiva normal. HEENT: External appearance of nose and ears normal, oral cavity grossly normal. [Surgical wound on top of the scalp] NECK: JVD not raised; masses not palpable. HEART: First and second heart sounds are normal; no edema. LUNGS: Respiratory rate normal; decreased breath sound. ABDOMEN: Soft, nontender, liver spleen not palpable, no masses palpable. PSYCH: Patient bit slow to answer questions but able to do so.l. NEUROLOGICAL: [Speech is a bit slow. Slight facial asymmetry Power in the left arm 4/5. 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 Gait imbalance INVESTIGATIONS, reviewed in the clinical context: MRI: Acute inferior right occipital lobe infarct with extension into the right thalamus. Or left watershed infarct. Carotid Doppler. No flow identified in the right vertebral artery. 2-D echocardiogram: EF 50-55%. WBC 9 hemoglobin 14.6 platelets 238 potassium 4.1 BUN 27 creatinine 1 Troponin I less than 0.012 UA: Glucose 3+ EKG tracing personally reviewed by me-atrial fibrillation with a rate of 73. 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 Cerebral atrophy. Chest x-ray film personally reviewed by me-borderline cardiomegaly. Course interstitial markings Assessment and plan: - Acute stroke: Right occipital lobe infarct extension into the right thalamus..: Possibly embolic Plavix. aspirin. Lipitor. Discussed with Dr. Oliveira from neurology. He had discussed with the . Eliquis to be started after 72 hours. 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 Walker -Essential hypertension Continue with amlodipine, Tenormin, Hyzaar -Hyperlipidemia Increase Lipitor to 40 mg daily at bedtime -Diabetes mellitus type 2, on oral hypoglycemic Resume glyburide. For Accu-Cheks. -Skin cancer of the scalp, surgically removed by . Vaseline dressing -Disposition: Patient has declined SNF for rehab Discussed with the patient. We'll start eliquis tomorrow. Watch for 24 hours. Other medications to continue.
[2020-11-14 17:02] LABS: Glucose,Whole Blood 108 mg/dL (75-99)
[2020-11-14 19:48] LABS: Glucose,Whole Blood 140 mg/dL (75-99)
[2020-11-14] MEDS: ATORVASTATIN 40 MG TAB PO SCH (20:23)
[2020-11-15 06:02] LABS: Glucose,Whole Blood 93 mg/dL (75-99)
[2020-11-15] MEDS: INSULIN ASPART (NovoLOG) 100 UNIT/ML VIAL SQ SCH ×3 (06:06→17:14)
[2020-11-15] MEDS: metFORMIN 500 MG TAB PO SCH ×2 (06:55→17:16)
[2020-11-15] MEDS: glipiZIDE 10 MG TAB PO SCH ×2 (06:55→17:16)
[2020-11-15] MEDS: CLOPIDOGREL 75 MG TAB PO SCH (09:06)
[2020-11-15] MEDS: atenoloL 25 MG TAB PO SCH (09:06)
[2020-11-15] MEDS: ENOXAPARIN 40 MG/0.4 ML SYRINGE SQ SCH (09:06)
[2020-11-15] MEDS: amLODIPine 10 MG TAB PO SCH (09:06)
[2020-11-15] MEDS: ASPIRIN 81 MG PO SCH (09:06)
[2020-11-15] MEDS: LOSARTAN-HCTZ 50-12.5 MG 1 EACH TAB PO SCH (09:07)
--- NOTE | 2020-11-15 10:34 | P.PN ---
Subjective Progress Note Date: 11/13/20 Patient was seen for a follow-up. Patient offers no new complaints. Patient is sitting in the recliner. No new concerns. Objective - Vital Signs Vital signs: Vital Signs Temp 98 F 11/13/20 04:48 Pulse 65 11/13/20 04:48 Resp 16 11/13/20 04:48 BP 97/55 11/13/20 04:48 Pulse Ox 93 L 11/13/20 04:48 Intake & Output 11/12/20 11/13/20 11/13/20 18:59 06:59 18:59 Intake Total 180 600 Output Total 1000 225 300 Balance -820 -225 300 Weight 85.3 kg Intake: Oral 180 600 Output: Urine 1000 225 300 Other: Voiding Method Urinal # Voids 0 # Bowel Movements 0 1 1 - Exam Patient is alert and awake. Patient appears slightly somnolent, but did wake up. Cranial nerves significant for left homonymous hemianopia. Patient has mild left facial asymmetry. Patient has left pronator drift. The strength appears fairly normal. Sensations are equal. Patient has moderate ataxia for [id number] testing on the left side. Tone and bulk of muscles normal. Gait deferred. - Labs CBC & Chem 7: 11/12/20 00:41 11/12/20 00:41 Labs: Abnormal Lab Results - Last 24 Hours (Table) 11/12/20 11/12/20 11/13/20 Range/Units 11:54 20:06 06:08 POC Glucose (mg/dL) 164 H 68 L (75-99) mg/dL Hemoglobin A1c 6.2 H (4.0-6.0) % 11/13/20 11/13/20 11/13/20 Range/Units 06:22 15:43 16:42 POC Glucose (mg/dL) 64 L 130 H 123 H (75-99) mg/dL Hemoglobin A1c (4.0-6.0) % Microbiology - Last 24 Hours (Table) 11/12/20 00:41 Blood Culture - Preliminary Blood No Growth after 24 hours 11/12/20 00:41 Blood Culture - Preliminary Blood No Growth after 24 hours Assessment and Plan Assessment: * Acute stroke manifesting with mild left hemiparesis, left homonymous hemianopia. MRI of the brain confirmed acute ischemic stroke involving inferior right occipital lobe with extension into the right thalamus. Patient not a candidate for TPA, as he came outside the window for TPA (>4.5 hours). * Diabetes * Hypertension * Hyperlipidemia * X tobacco use * History of multiple strokes in the past Plan: * MRI of the brain, evaluate for acute stroke * Carotid Doppler, revealed antegrade flow in the left vertebral artery. No flow identified in the right vertebral artery. Close to 50% stenosis in both ICAs. * 2-D echo revealed normal left-ventricular size. Mild concentric LVH. Left ventricular systolic function is low normal with EF between 50-55%. Left atrium is severely dilated. Mild to moderate MR. Mild TR. * Fasting lipid panel with cholesterol 105, LDL 47, HDL 42 and triglycerides 77. Continue Lipitor 40 mg. * Hemoglobin A1c 6.2 * B12, folate, MMA, TSH * Patient's telemetry monitoring showing atrial fibrillation. EKG also confirmed atrial fibrillation. * MRI of the brain confirmed acute inferior right occipital lobe infarct with extension into the right thalamus. Chronic appearing periventricular white matter ischemic change. 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 * As patient has moderate size ischemic stroke, hold anticoagulation for 5 days. Repeat computed tomography scan head on Monday. If no hemorrhage, then may start anticoagulation. * Continue Plavix, continue Lovenox for DVT prophylaxis. * Discussed with primary physician, agree with the management.
--- NOTE | 2020-11-15 11:10 | CT ---
EXAMINATION TYPE: CT brain wo con DATE OF EXAM: 11/15/2020 COMPARISON: 11/12/2020 INDICATION: CVA follow up, rule out hemorrhage DLP: 1115.4 mGycm, Automated exposure control for dose reduction was used. CONTRAST: None CT of the brain is performed utilizing 3 mm thick sections through the posterior fossa and 3 mm thick sections through the remaining calvarium. Study is performed within 24 hours of arrival to the hosp [facility]. No abnormal hyperdensity is present to suggest an acute intracranial hemorrhage. No mass lesion is evident. There is interval development of a right occipital lobe infarct. No significant mass effect is eviden t. Minimal mass effect on the posterior horn right lateral ventricle may be present. There is periventricular white matter hypodensity, likely on the basis of chronic white matter ischem ic changes. Watershed infarct on the left appears old and was present previously. Ventricles and sulci are slightly prominent for the patient age. Paranasal sinuses and mastoid air cells within the [id number] are clear. IMPRESSIONS: 1. Interval evolution of the right occipital lobe infarct. 2. Chronic appearing periventricular white matter ischemic changes. 3. Old left watershed infarct
[2020-11-15 11:44] LABS: Glucose,Whole Blood 121 mg/dL (75-99)
[2020-11-15 16:55] LABS: Glucose,Whole Blood 125 mg/dL (75-99)
[2020-11-15] MEDS: SODIUM CHLORIDE 0.9% 1,000 ML IV SCH (17:13)
[2020-11-15] MEDS: RIVAROXABAN 20 MG TAB PO SCH (17:16)
[2020-11-15] MEDS: ATORVASTATIN 40 MG TAB PO SCH (20:26)
[2020-11-15 21:09] LABS: Glucose,Whole Blood 153 mg/dL (75-99)
--- NOTE | 2020-11-15 21:19 | P.PN ---
Progress Note - Text Progress Note Date: 11/15/20 Chief Complaint: Dizziness, slurred speech History of presenting complaint: This is a pleasant 85-year-old patient of Dr. David Mcnally. Chronic stable medical conditions include diabetes, hyperlipidemia, hypertension with a possible prior stroke. Patient is not the best of historians. Yesterday evening around 7:30 PM he was watching television when patient suddenly noticed that he became dizzy and also his speech became slurred. He's had previous strokes. His left arm is weaker from before. Patient's finding it a bit difficult to walk. Patient also missed his morning medications. But he is done so before. Patient is not short of days and he knew change in vision. He has trouble from his right eye because of cataract. He denies any trouble in swallowing. No headache. [Just recently had a skin cancer removed from the scalp, applying Vaseline dressings, by Dr. alvarado} MRI showed: Acute inferior right occipital lobe infarct extension into the right thalamus. 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 Placed on aspirin, Lipitor, Plavix November 13: In a recliner. A bit tired. Speech is a bit slow. November 14: Resting in a chair. Oral intake fair. No new symptoms. November 15: Resting the recliner. and children present. Speech is much improved. Oral intake is good. We'll start the patient on xarelto tonight 20 mg. Pros and cons were discussed with the patient and family. And decided to proceed with the same. Also discussed with Dr. Oliveira from neurology. We will keep patient aspirin on board because of his other risk factors. DC Plavix. Also discussed with the patient about inpatient rehab. He is agreeable to the same. Review of systems: Was done for constitutional, cardiovascular, GI, pulmonary. relevant finding as above Active Medications Amlodipine Besylate (Amlodipine 10 Mg Tab) 10 mg PO DAILY [facility] Last Admin: 11/15/20 09:06 Dose: 10 mg Documented by: Aspirin (Aspirin 81 Mg) 81 mg PO DAILY [facility] Last Admin: 11/15/20 09:06 Dose: 81 mg Documented by: Atenolol (Atenolol 25 Mg Tab) 25 mg PO DAILY [facility] Last Admin: 11/15/20 09:06 Dose: 25 mg Documented by: Atorvastatin Calcium (Atorvastatin 40 Mg Tab) 40 mg PO HS [facility] Last Admin: 11/15/20 20:26 Dose: 40 mg Documented by: Famotidine (Famotidine 20 Mg Tab) 20 mg PO BID NALDO Glipizide (Glipizide 10 Mg Tab) 10 mg PO AC-BID [facility] Last Admin: 11/15/20 17:16 Dose: 10 mg Documented by: HCTZ/Losartan Potassium (Losartan-Hctz 50-12.5 Mg 1 Each Tab) 2 each PO DAILY [facility] Last Admin: 11/15/20 09:07 Dose: 2 each Documented by: Insulin Aspart (Insulin Aspart (Novolog) 100 Unit/Ml Vial) 0 unit SQ ACHS [facility]; Protocol Last Admin: 11/15/20 17:14 Dose: Not Given Documented by: Metformin HCl (Metformin 500 Mg Tab) 500 mg PO BID-W/MEALS [facility] Last Admin: 11/15/20 17:16 Dose: 500 mg Documented by: Naloxone HCl (Naloxone 0.4 Mg/Ml 1 Ml Vial) 0.2 mg IV Q2M PRN PRN Reason: Opioid Reversal Rivaroxaban (Rivaroxaban 20 Mg Tab) 20 mg PO W/SUPPER [facility]; Protocol Last Admin: 11/15/20 17:16 Dose: 20 mg Documented by: Past medical history to include: Diabetes, hypertension, hyperlipidemia, stroke Social history: Retired. . Did smoke in the past. Alcohol occasionally Physical examination: VITAL SIGNS: 98.5, 60, 18, 1 20/69, 97% room air GENERAL: Reclining in a chair, comfortable EYES: Pupils equal. Conjunctiva normal. HEENT: External appearance of nose and ears normal, oral cavity grossly normal. [Surgical wound on top of the scalp] NECK: JVD not raised; masses not palpable. HEART: First and second heart sounds are normal; no edema. LUNGS: Respiratory rate normal; decreased breath sound. ABDOMEN: Soft, nontender, liver spleen not palpable, no masses palpable. PSYCH: Patient bit slow to answer questions but able to do so.l. NEUROLOGICAL: [Speech-improved. Slight facial asymmetry Power in the left arm 4/5. 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 Gait imbalance INVESTIGATIONS, reviewed in the clinical context: MRI: Acute inferior right occipital lobe infarct with extension into the right thalamus. Or left watershed infarct. Carotid Doppler. No flow identified in the right vertebral artery. 2-D echocardiogram: EF 50-55%. WBC 9 hemoglobin 14.6 platelets 238 potassium 4.1 BUN 27 creatinine 1 Troponin I less than 0.012 UA: Glucose 3+ EKG tracing personally reviewed by me-atrial fibrillation with a rate of 73. 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 Cerebral atrophy. Chest x-ray film personally reviewed by me-borderline cardiomegaly. Course interstitial markings Assessment and plan: - Acute stroke: Right occipital lobe infarct extension into the right thalamus..: Possibly embolic Plavix-discontinued. aspirin. Lipitor. Xarelto being started tonight. Pros and cons discuss with the patient and family.. 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 Walker -Essential hypertension Continue with amlodipine, Tenormin, Hyzaar -Hyperlipidemia Increase Lipitor to 40 mg daily at bedtime -Diabetes mellitus type 2, on oral hypoglycemic Resume glyburide. For Accu-Cheks. -Skin cancer of the scalp, surgically removed by . Vaseline dressing -Disposition: Patient has declined SNF for rehab Discussed with the patient about inpatient rehab. Agreeable. After discussion started patient on xarelto. See above. Look for placement for rehab tomorrow. Total time spent today about 50 minutes with over 25 minutes of discussion
--- NOTE | 2020-11-16 00:11 | P.PN ---
Subjective Progress Note Date: 11/15/20 Patient was seen for a follow-up by tele-neurology, today on 11/15/2020. Patient was seen for a follow-up. Patient offers no new complaints. States he is feeling better. Patient is sitting in the recliner. No new concerns. Denies headache. Objective - Vital Signs Vital signs: Vital Signs Temp 98 F 11/15/20 20:37 Pulse 62 11/15/20 20:40 Resp 18 11/15/20 20:37 BP 136/79 11/15/20 20:37 Pulse Ox 94 L 11/15/20 20:37 Intake & Output 11/15/20 11/15/20 11/16/20 06:59 18:59 06:59 Intake Total 472 Output Total 225 400 600 Balance -225 72 -600 Weight 87.3 kg Intake: Oral 472 Output: Urine 225 400 600 Other: Voiding Method Urinal Urinal # Voids 0 1 1 # Bowel Movements 0 0 - Exam Patient is alert and awake. Patient appears slightly somnolent, but did wake up. Cranial nerves significant for left homonymous hemianopia. Patient has mild left facial asymmetry. Patient has left pronator drift. The strength appears fairly normal. Sensations are equal. Patient has moderate ataxia for [id number] testing on the left side. Tone and bulk of muscles normal. Gait deferred. - Labs CBC & Chem 7: 11/12/20 00:41 11/12/20 00:41 Labs: Abnormal Lab Results - Last 24 Hours (Table) 11/15/20 11/15/20 11/15/20 Range/Units 11:42 16:49 20:41 POC Glucose (mg/dL) 121 H 125 H 153 H (75-99) mg/dL Microbiology - Last 24 Hours (Table) 11/12/20 00:41 Blood Culture - Preliminary Blood No Growth after 72 hours 11/12/20 00:41 Blood Culture - Preliminary Blood No Growth after 72 hours Assessment and Plan Assessment: * Acute stroke manifesting with mild left hemiparesis, left homonymous hemianopia. MRI of the brain confirmed acute ischemic stroke involving inferior right occipital lobe with extension into the right thalamus. Patient not a candidate for TPA, as he came outside the window for TPA (>4.5 hours). * Diabetes * Hypertension * Hyperlipidemia * X tobacco use * History of multiple strokes in the past Plan: * Patient had a repeat computed tomography scan of head performed today, which revealed interval evolution of the right occipital lobe infarct. Chronic appearing periventricular white matter ischemic change. 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 No hemorrhage. * Carotid Doppler, revealed antegrade flow in the left vertebral artery. No flow identified in the right vertebral artery. Close to 50% stenosis in both ICAs. * Discussed with Dr. Cavazos in detail. Patient already has multiple strokes in the past. Patient has atrial fibrillation. Also has no flow in the right vertebral artery. Patient has multiple reasons for recurrent embolic strokes. Given the risks and benefits, benefits outweigh the risks of anticoagulation. Patient to be started on Xarelto 20 mg daily at bedtime. Dr. Cavazos did speak to the family about risks and benefits. * 2-D echo revealed normal left-ventricular size. Mild concentric LVH. Left ventricular systolic function is low normal with EF between 50-55%. Left atrium is severely dilated. Mild to moderate MR. Mild TR. * Fasting lipid panel with cholesterol 105, LDL 47, HDL 42 and triglycerides 77. Continue Lipitor 40 mg. * Hemoglobin A1c 6.2 * B12 402, folate > 24.0, MMA 0.14, TSH 2.20 all normal. * Patient's telemetry monitoring showing atrial fibrillation. EKG also confirmed atrial fibrillation. * MRI of the brain confirmed acute inferior right occipital lobe infarct with extension into the right thalamus. Chronic appearing periventricular white matter ischemic change. 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 * Discontinue Plavix. Patient will be continued also on aspirin for stroke prevention related to atherosclerotic cerebrovascular disease. * Dr. Rebel Gibbs Will resume neurology service in the morning.
[2020-11-16] MEDS: INSULIN ASPART (NovoLOG) 100 UNIT/ML VIAL SQ SCH ×5 (01:19→21:05)
[2020-11-16 06:40] LABS: Glucose,Whole Blood 93 mg/dL (75-99)
[2020-11-16] MEDS: FAMOTIDINE 20 MG TAB PO SCH ×3 (07:23→21:09)
[2020-11-16] MEDS: metFORMIN 500 MG TAB PO SCH ×2 (07:24→17:14)
[2020-11-16] MEDS: glipiZIDE 10 MG TAB PO SCH ×2 (07:24→17:14)
[2020-11-16] MEDS: LOSARTAN-HCTZ 50-12.5 MG 1 EACH TAB PO SCH (08:23)
[2020-11-16] MEDS: ASPIRIN 81 MG PO SCH (08:23)
[2020-11-16] MEDS: amLODIPine 10 MG TAB PO SCH (08:23)
[2020-11-16] MEDS: atenoloL 25 MG TAB PO SCH (08:23)
[2020-11-16 11:41] LABS: Glucose,Whole Blood 133 mg/dL (75-99)
--- NOTE | 2020-11-16 13:22 | P.PN ---
Progress Note - Text Progress Note Date: 11/16/20 Chief Complaint: Dizziness, slurred speech History of presenting complaint: This is a pleasant 85-year-old patient of Dr. David Mcnally. Chronic stable medical conditions include diabetes, hyperlipidemia, hypertension with a possible prior stroke. Patient is not the best of historians. Yesterday evening around 7:30 PM he was watching television when patient suddenly noticed that he became dizzy and also his speech became slurred. He's had previous strokes. His left arm is weaker from before. Patient's finding it a bit difficult to walk. Patient also missed his morning medications. But he is done so before. Patient is not short of days and he knew change in vision. He has trouble from his right eye because of cataract. He denies any trouble in swallowing. No headache. [Just recently had a skin cancer removed from the scalp, applying Vaseline dressings, by Dr. alvarado} MRI showed: Acute inferior right occipital lobe infarct extension into the right thalamus. 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 Placed on aspirin, Lipitor, Plavix November 13: In a recliner. A bit tired. Speech is a bit slow. November 14: Resting in a chair. Oral intake fair. No new symptoms. November 15: Resting the recliner. and children present. Speech is much improved. Oral intake is good. We'll start the patient on xarelto tonight 20 mg. Pros and cons were discussed with the patient and family. And decided to proceed with the same. Also discussed with Dr. Oliveira from neurology. We will keep patient aspirin on board because of his other risk factors. DC Plavix. Also discussed with the patient about inpatient rehab. He is agreeable to the same. November 16: In the recliner. Ambulated well in the hallway today. Oral intake fair. Started on xarelto last night. Patient's daughter and at the bedside. Being evaluated for inpatient rehab. Review of systems: Was done for constitutional, cardiovascular, GI, pulmonary. relevant finding as above Active Medications Amlodipine Besylate (Amlodipine 10 Mg Tab) 10 mg PO DAILY [facility] Last Admin: 11/16/20 08:23 Dose: 10 mg Documented by: Aspirin (Aspirin 81 Mg) 81 mg PO DAILY [facility] Last Admin: 11/16/20 08:23 Dose: 81 mg Documented by: Atenolol (Atenolol 25 Mg Tab) 25 mg PO DAILY [facility] Last Admin: 11/16/20 08:23 Dose: 25 mg Documented by: Atorvastatin Calcium (Atorvastatin 40 Mg Tab) 40 mg PO HS [facility] Last Admin: 11/15/20 20:26 Dose: 40 mg Documented by: Famotidine (Famotidine 20 Mg Tab) 20 mg PO BID [facility] Last Admin: 11/16/20 07:24 Dose: Not Given Documented by: Glipizide (Glipizide 10 Mg Tab) 10 mg PO AC-BID [facility] Last Admin: 11/16/20 07:24 Dose: 10 mg Documented by: HCTZ/Losartan Potassium (Losartan-Hctz 50-12.5 Mg 1 Each Tab) 2 each PO DAILY [facility] Last Admin: 11/16/20 08:23 Dose: 2 each Documented by: Insulin Aspart (Insulin Aspart (Novolog) 100 Unit/Ml Vial) 0 unit SQ ACHS [facility]; Protocol Last Admin: 11/16/20 12:17 Dose: Not Given Documented by: Metformin HCl (Metformin 500 Mg Tab) 500 mg PO BID-W/MEALS [facility] Last Admin: 11/16/20 07:24 Dose: 500 mg Documented by: Naloxone HCl (Naloxone 0.4 Mg/Ml 1 Ml Vial) 0.2 mg IV Q2M PRN PRN Reason: Opioid Reversal Rivaroxaban (Rivaroxaban 20 Mg Tab) 20 mg PO W/SUPPER [facility]; Protocol Last Admin: 11/15/20 17:16 Dose: 20 mg Documented by: Past medical history to include: Diabetes, hypertension, hyperlipidemia, stroke Social history: Retired. . Did smoke in the past. Alcohol occasionally Physical examination: VITAL SIGNS: 98.2, 80, 18, 123% 8, 97% room air GENERAL: Reclining in a chair, eating, comfortable EYES: Pupils equal. Conjunctiva normal. HEENT: External appearance of nose and ears normal, oral cavity grossly normal. [Surgical wound on top of the scalp] NECK: JVD not raised; masses not palpable. HEART: First and second heart sounds are normal; no edema. LUNGS: Respiratory rate normal; decreased breath sound. ABDOMEN: Soft, nontender, liver spleen not palpable, no masses palpable. PSYCH: Patient bit slow to answer questions but able to do so.l. NEUROLOGICAL: [Speech-improved. Slight facial asymmetry Power in the left arm 4/5. 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 Gait imbalance INVESTIGATIONS, reviewed in the clinical context: MRI: Acute inferior right occipital lobe infarct with extension into the right thalamus. Or left watershed infarct. Carotid Doppler. No flow identified in the right vertebral artery. 2-D echocardiogram: EF 50-55%. WBC 9 hemoglobin 14.6 platelets 238 potassium 4.1 BUN 27 creatinine 1 Troponin I less than 0.012 UA: Glucose 3+ EKG tracing personally reviewed by me-atrial fibrillation with a rate of 73. 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 Cerebral atrophy. Chest x-ray film personally reviewed by me-borderline cardiomegaly. Course interstitial markings Assessment and plan: - Acute stroke: Right occipital lobe infarct extension into the right thalamus..: Possibly embolic Plavix-discontinued. aspirin. Lipitor. Xarelto started. . 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 Walker -Essential hypertension Continue with amlodipine, Tenormin, Hyzaar -Hyperlipidemia Increase Lipitor to 40 mg daily at bedtime -Diabetes mellitus type 2, on oral hypoglycemic Resume glyburide. For Accu-Cheks. -Skin cancer of the scalp, surgically removed by . Vaseline dressing -Disposition: Inpatient rehab is being evaluated. Patient doing better. Discuss with the patient, his , and his daughters. Also the social security benefits interviewer. Inpatient rehab is being evaluated. Continue current medication. Total time spent about 40 minutes with over 20 minute some discussion.
--- NOTE | 2020-11-16 15:58 | P.CONS ---
History of Present Illness - Chief Complaint Gait disturbance - History of Present Illness I had the opportunity to see patient for inpatient rehab consultation with regard to gait disturbance. Patient admitted to [facility] to [facility] with weakness of legs, dizziness and slurring of speech. Seen in consultation by neurology, Dr. his son who notes A pierces and left homonymous hemianopsia. Chest x-ray with mild pulmonary fibrosis. Brain MRI and head CT both demonstrated acute right occipital infarct extension and of the right thalamus with chronic periventricular change and old left lacunar infarct. Carotid Doppler with intimal thickening bilaterally. PT reports supervision for bed mobility and minimal assistance for gait up to total 180 feet with roller walker. OT reports modified independent with upper dressing and supervision for lower dressing and toileting and minimal assistance for bathing and functional mobility and transfers. Speech therapy prescribed. Patient reports previous inpatient rehab at [facility]. Previous functional history as elicited from patient: 85-year-old right-handed white male who is lives in trailer home with . 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 Patient independent with cooking, driving, standing shower and gait without device. PCP Dr. David Mcnally. Patient denies tobacco or alcohol. Family history both parents with cancer. Review of Systems Review of systems: ENT: Denies sneezes or discharge. Eyes: Denies discharge or photophobia. Cardiac: Denies chest pain or palpitation. Pulmonary: Denies cough or shortness of breath. Gastrointestinal: Denies nausea, emesis, constipation, diarrhea. Genitourinary: Denies discharge or frequency. Musculoskeletal: Denies muscle or bone aches. Neurologic: Initially with bilateral leg weakness on admission. Patient now reports perhaps left-sided weakness. Endocrine: Denies shakes or sweats. Oncology: Denies cancers. Dermatologic: Denies rash, itching, pruritus. ALLERGY/immunology: Denies sneezes, rashes. Past Medical History Past Medical History: Diabetes Mellitus, Hyperlipidemia, Hypertension Additional Past Medical History / Comment(s): Stroke History of Any Multi-Drug Resistant Organisms: None Reported Additional Past Surgical History / Comment(s): knee surgery, eye surgery Past Psychological History: No Psychological Hx Reported Smoking Status: Former smoker Past Alcohol Use History: Occasional Past Drug Use History: None Reported Medications and Allergies Home Medications Medication Instructions Recorded Confirmed Type Atorvastatin Calcium [Lipitor] 10 mg PO HS 11/12/20 11/12/20 History Clopidogrel Bisulfate [Plavix] 75 mg PO DAILY 11/12/20 11/12/20 History Losartan/Hydrochlorothiazide 1 tab PO DAILY 11/12/20 11/12/20 History [Losartan-Hctz 100-25 mg Tab] amLODIPine [Norvasc] 10 mg PO DAILY 11/12/20 11/12/20 History atenoloL [Atenolol] 25 mg PO DAILY 11/12/20 11/12/20 History glyBURIDE [Diabeta] 5 mg PO AC-BID 11/12/20 11/12/20 History metFORMIN HCL 500 mg PO BID 11/12/20 11/12/20 History Allergies Allergy/AdvReac Type Severity Reaction Status Date / Time No Known Allergies Allergy Verified 11/12/20 09:29 Physical Exam Vitals: Vital Signs Temp Pulse Resp BP Pulse Ox 11/16/20 07:55 98.2 F 80 18 123/78 97 11/16/20 04:00 97.8 F 70 18 110/68 11/16/20 02:00 58 L 11/16/20 00:00 58 L 120/64 11/15/20 20:40 62 11/15/20 20:37 98 F 62 18 136/79 94 L 11/15/20 16:00 98.5 F 60 18 120/69 97 Intake and Output 11/16/20 11/16/20 11/16/20 06:59 14:59 22:59 Intake Total 480 Output Total 650 175 Balance -170 -175 Intake: Oral 480 Output: Urine 650 175 Other: Voiding Method Urinal # Voids 2 1 # Bowel Movements 0 Weight 88.5 kg Skin: Good color, texture, turgor. General: Medium build and comfortable appearance. Head: Normocephalic, atraumatic. Eyes: Symmetric. Pupils equal round. Ears: Symmetric. Hearing within normal limits. Mouth: Clear. Neck: Supple. Carotid without bruit. Cardiac: Regular rate and rhythm. Lungs: Clear anteriorly and posteriorly. Abdomen: Soft active nontender. Extremities: Normal tone. Neurological: Mental status: Alert, cooperative, pleasant. Cranial nerves: Symmetric facial tone and trapezius. Motor: Normal strength and isolation all 4 limbs. Mild weakness at ankles, left more so than right. Apraxia mild left arm and leg. Sensation: Intact throughout. DTRs: Symmetric and equal throughout. Mobility: Sits and stands with minimal assistance. Results CBC & Chem 7: 11/12/20 00:41 11/12/20 00:41 Labs: Abnormal Lab Results - Last 24 Hours (Table) 11/15/20 11/15/20 11/16/20 Range/Units 16:49 20:41 11:40 POC Glucose (mg/dL) 125 H 153 H 133 H (75-99) mg/dL Microbiology - Last 24 Hours (Table) 11/12/20 00:41 Blood Culture - Preliminary Blood No Growth after 96 hours 11/12/20 00:41 Blood Culture - Preliminary Blood No Growth after 96 hours Assessment and Plan (1) Atrial fibrillation Current Visit: Yes Status: Acute Code(s): I48.91 - UNSPECIFIED ATRIAL FIBRILLATION SNOMED Code(s): 16507746 Plan: Impression: 1. Gait disturbance with stroke result in left hemiparesthesias and left hemianopsia with history of previous stroke. 2. Atrial fibrillation. 3. Hypertension. 4. Disability. 5. Diabetes. Comments and plan: At this time patient is started therapies and PT and OT both note safety concerns, recurrent minimal assistance for functional mobility, tra nsfers and gait with roller walker. Speech therapy prescribed. Patient has had previous benefit from inpatient rehab and is hopeful for rehab admission there again. At this time it appears the patient is again appropriate for inpatient rehab with new stroke.
[2020-11-16 16:45] LABS: Glucose,Whole Blood 135 mg/dL (75-99)
[2020-11-16] MEDS: RIVAROXABAN 20 MG TAB PO SCH (17:14)
[2020-11-16] MEDS: CEPHALEXIN 500 MG CAP PO SCH ×2 (17:14→21:09)
[2020-11-16 20:04] LABS: Glucose,Whole Blood 126 mg/dL (75-99)
[2020-11-16] MEDS: ATORVASTATIN 40 MG TAB PO SCH (21:09)
[2020-11-16] MEDS: BACITRACIN OINT 1 EACH PACKET TOPICAL SCH (21:45)
[2020-11-17 06:07] LABS: Glucose,Whole Blood 93 mg/dL (75-99)
[2020-11-17] MEDS: INSULIN ASPART (NovoLOG) 100 UNIT/ML VIAL SQ SCH ×2 (06:57→12:30)
[2020-11-17] MEDS: metFORMIN 500 MG TAB PO SCH (06:59)
[2020-11-17] MEDS: glipiZIDE 10 MG TAB PO SCH (06:59)
[2020-11-17] MEDS: ASPIRIN 81 MG PO SCH (10:06)
[2020-11-17] MEDS: atenoloL 25 MG TAB PO SCH (10:06)
[2020-11-17] MEDS: CEPHALEXIN 500 MG CAP PO SCH ×2 (10:07→12:30)
[2020-11-17] MEDS: amLODIPine 10 MG TAB PO SCH (10:07)
[2020-11-17] MEDS: FAMOTIDINE 20 MG TAB PO SCH (10:07)
[2020-11-17] MEDS: BACITRACIN OINT 1 EACH PACKET TOPICAL SCH (10:07)
[2020-11-17] MEDS: LOSARTAN-HCTZ 50-12.5 MG 1 EACH TAB PO SCH (10:07)
[2020-11-17 10:24] VITALS: BP 135/82; PULSE 79; RESP 20; TEMP 98.1
[2020-11-17 11:23] VITALS: BMI 26.4
[2020-11-17 12:01] LABS: Glucose,Whole Blood 110 mg/dL (75-99)
--- NOTE | 2020-11-17 12:41 | P.DS ---
Providers Date of admission: 11/12/20 11:21 Expected date of discharge: 11/17/20 Attending physician: Dheeraj Cavazos Consults: 11/12/20 04:04 Consult Physician Routine Consulting Provider: Keny Ritchie Consult Reason/Comments: altered mental status Do you want consulting provider notified?: Yes 11/16/20 12:22 Consult Physician Routine Consulting Provider: Ed Shea Consult Reason/Comments: possible IPR Do you want consulting provider notified?: Yes Primary care physician: David Mcnally MD Hospital Course: Chief Complaint: Dizziness, slurred speech History of presenting complaint: This is a pleasant 85-year-old patient of Dr. David Mcnally. Chronic stable medical conditions include diabetes, hyperlipidemia, hypertension with a possi ble prior stroke. Patient is not the best of historians. Yesterday evening around 7:30 PM he was watching television when patient suddenly noticed that he became dizzy and also his speech became slurred. He's had previous strokes. His left arm is weaker from before. Patient's finding it a bit difficult to walk. Patient also missed his morning medications. But he is done so before. Patient is not short of days and he knew change in vision. He has trouble from his right eye because of cataract. He denies any trouble in swallowing. No headache. [Just recently had a skin cancer removed from the scalp, applying Vaseline dressings, by Dr. alvarado} MRI showed: Acute inferior right occipital lobe infarct extension into the right thalamus. 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 Placed on aspirin, Lipitor, Plavix November 13: In a recliner. A bit tired. Speech is a bit slow. November 14: Resting in a chair. Oral intake fair. No new symptoms. November 15: Resting the recliner. and children present. Speech is much improved. Oral intake is good. We'll start the patient on xarelto tonight 20 mg. Pros and cons were discussed with the patient and family. And decided to proceed with the same. Also discussed with Dr. Oliveira from neurology. We will keep patient aspirin on board because of his other risk factors. DC Plavix. Also discussed with the patient about inpatient rehab. He is agreeable to the same. November 16: In the recliner. Ambulated well in the hallway today. Oral intake fair. Started on xarelto last night. Patient's daughter and at the bedside. Being evaluated for inpatient rehab. November 17: Oral intake fair. Comfortable. present. Patient been accepted at inpatient rehab at [facility]. Questions were answered. Discussion and discharge planning more than 35 minutes Consultation: Dr. Oliveira from neurology Past medical history to include: Diabetes, hypertension, hyperlipidemia, stroke Social history: Retired. . Did smoke in the past. Alcohol occasionally Physical examination: VITAL SIGNS: 98.1, 79, 20, 135/82, 97% room air GENERAL: Reclining in a chair, comfortable EYES: Pupils equal. Conjunctiva normal. HEENT: External appearance of nose and ears normal, oral cavity grossly normal. [Surgical wound on top of the scalp] NECK: JVD not raised; masses not palpable. HEART: First and second heart sounds are normal; no edema. LUNGS: Respiratory rate normal; decreased breath sound. ABDOMEN: Soft, nontender, liver spleen not palpable, no masses palpable. PSYCH: Patient bit slow to answer questions but able to do so.l. NEUROLOGICAL: [Speech-improved. Slight facial asymmetry Power in the left arm 4/5. 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 Gait imbalance INVESTIGATIONS, reviewed in the clinical context: MRI: Acute inferior right occipital lobe infarct with extension into the right thalamus. Or left watershed infarct. Carotid Doppler. No flow identified in the right vertebral artery. 2-D echocardiogram: EF 50-55%. WBC 9 hemoglobin 14.6 platelets 238 potassium 4.1 BUN 27 creatinine 1 Troponin I less than 0.012 UA: Glucose 3+ EKG tracing personally reviewed by me-atrial fibrillation with a rate of 73. 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 Cerebral atrophy. Chest x-ray film personally reviewed by me-borderline cardiomegaly. Course interstitial markings Assessment and plan: - Acute stroke: Right occipital lobe infarct extension into the right thalamus..: Possibly embolic Plavix-discontinued. aspirin. Lipitor. Xarelto started. . 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 Walker -Essential hypertension Continue with amlodipine, Tenormin, Hyzaar -Hyperlipidemia Lipitor to 40 mg daily at bedtime -Diabetes mellitus type 2, on oral hypoglycemic Glyburide. 5 mg daily. Metformin 5 mg twice a day For Accu-Cheks. -Skin cancer of the scalp, surgically removed by ., Possibly secondary infection. BC [place] dressing. By mouth Keflex. Disposition: Inpatient rehab/[facility] Plan - Discharge Summary Discharge Rx Participant: No New Discharge Prescriptions: New Aspirin 81 mg PO DAILY chew Cephalexin [Keflex] 500 mg PO QID #28 cap INSULIN ASPART (NovoLOG) [NovoLOG (formulary)] 0 unit SQ ACHS vial Famotidine [Pepcid] 20 mg PO BID tab Rivaroxaban [Xarelto] 20 mg PO W/SUPPER tab Atorvastatin [Lipitor] 40 mg PO HS tab Continue glyBURIDE [Diabeta] 5 mg PO AC-BID amLODIPine [Norvasc] 10 mg PO DAILY Losartan/Hydrochlorothiazide [Losartan-Hctz 100-25 mg Tab] 1 tab PO DAILY atenoloL [Atenolol] 25 mg PO DAILY metFORMIN HCL 500 mg PO BID Discontinued Clopidogrel Bisulfate [Plavix] 75 mg PO DAILY Atorvastatin Calcium [Lipitor] 10 mg PO HS Discharge Medication List Losartan/Hydrochlorothiazide [Losartan-Hctz 100-25 mg Tab] 1 tab PO DAILY 11/12/20 [History] amLODIPine [Norvasc] 10 mg PO DAILY 11/12/20 [History] atenoloL [Atenolol] 25 mg PO DAILY 11/12/20 [History] glyBURIDE [Diabeta] 5 mg PO AC-BID 11/12/20 [History] metFORMIN HCL 500 mg PO BID 11/12/20 [History] Aspirin 81 mg PO DAILY chew 11/17/20 [Rx] Atorvastatin [Lipitor] 40 mg PO HS tab 11/17/20 [Rx] Cephalexin [Keflex] 500 mg PO QID #28 cap 11/17/20 [Rx] Famotidine [Pepcid] 20 mg PO BID tab 11/17/20 [Rx] INSULIN ASPART (NovoLOG) [NovoLOG (formulary)] 0 unit SQ ACHS vial 11/17/20 [Rx] Rivaroxaban [Xarelto] 20 mg PO W/SUPPER tab 11/17/20 [Rx] Follow up Appointment(s)/Referral(s): David Mcnally MD [Primary Care Provider] - As Needed
--- NOTE | 2020-11-17 12:51 | CDI ---
Documentation Clarification Form Date: 11/17/2020 12:30:04 PM From: Nancy Krause CCS, CCDS Admit Date: 11/12/2020 11:21:00 AM Patient Name: Juvenal Mcnally Visit Number: [id number] Discharge Date: ATTENTION: The Clinical Documentation Specialists (CDI) and [facility] Coding Staff appreciate your assistance in clarifying documentation. Please respond to the clarification below the line at the bottom and electronically sign. The CDI & [facility] Coding staff will review the response and follow-up if needed. Please note: Queries are made part of the Legal Health Record. If you have any questions, please contact the author of this message via ITS. Dr. Dheeraj Cavazos: Atrial Fibrillation without further specificity is documented in the 11/12 ED Note, the 11/12 H/P, the 11/12 Neurology Consult and Subsequent Progress Notes and Subsequent Progress Notes. Additional clarification regarding the type of atrial fibrillation is requested. History/Risk Factors per the 11/12 H/P: DM II, Hyperlipidemia, Hypertension, Possible prior CVA, Moderate cognitive impairment from dementia. Former smoker. Clinical Indicators: Presented to the ED on 11/12 with weakness, unable to walk. Weakness may be due to Atrial Fibrillation with RVR. Per the patient's he had facial droop, outside the window for TPA. ED Clinical Impression: Atrial Fibrillation, Possible ischemic stroke vs TIA. 11/11 VS: T 99.3, P 88, R 16 - 22, BP 138/79, PO 95 RA, BMI 26.4 11/11 LAB: BUN 27, Glucose 165. 11/12 CXR: Mild pulmonary fibrotic changes. 11/12 EKG: R 73 Atrial fibrillation with PVCs, Left axis deviation, LBBB Treatment: IV Na Cl 1,000 mls @ 75 mls/hr q13Hr, po Norvasc, po Tenormin, po Plavix, Lovenox sq, po Hyzaar, po Aspirin. 11/15: Started on po Xarelto 20 mg. Cardiology was not consulted. Please clarify the type of atrial fibrillation, if known: [ ] Chronic [ ] Permanent [ ] Paroxysmal [ ] Persistent [ ] Other, please specify [ ] Unable to determine (Template Last Revised: August 2020) Persistent atrial fibrillation MTDD
== END 2020-11-17 15:20 | DRG 65 ==
LOC: EC 23:44 → 6NMEDSUR 11-12 04:03 → OBSVTOIN 11-12 11:21 → 3SCARD 11-12 16:23
PROVIDERS: ADMIT Hospitalist; ATTEND Hospitalist
DX: I63.49 Cerebral infarction due to embolism of other cerebral artery (principal); G81.94 Hemiplegia, unspecified affecting left nondominant side; I48.19 Other persistent atrial fibrillation; Z79.84 Long term (current) use of oral hypoglycemic drugs; I48.91 Unspecified atrial fibrillation; R47.1 Dysarthria and anarthria; I10 Essential (primary) hypertension; E78.5 Hyperlipidemia, unspecified; E11.36 Type 2 diabetes mellitus with diabetic cataract; Z87.891 Personal history of nicotine dependence; F01.50 Vascular dementia, unspecified severity, without behavioral disturbance, psychotic disturbance, mood disturbance, and anxiety; H53.462 Homonymous bilateral field defects, left side; R29.707 NIHSS score 7; Z85.828 Personal history of other malignant neoplasm of skin; J84.10 Pulmonary fibrosis, unspecified; I69.311 Memory deficit following cerebral infarction; Z79.899 Other long term (current) drug therapy; Z79.02 Long term (current) use of antithrombotics/antiplatelets; Z74.1 Need for assistance with personal care
CPT/HCPCS: 36415; 70450; 70551; 71046; 80053; 80061; 81003; 82607; 82746; 83036; 83921; 84443; 84484; 85025; 85610; 85730; 87040; 87070; 87077; 87186; 87205; 93005; 93306; 93880; 99285